=== PATIENT | female | born 1970 | race Caucasian/White ===

== ENCOUNTER 2017-03-08 11:21 | Outpatient (CLI) | payer MEDICAID ==
[2017-03-08 11:24] VITALS: BP 141/98
== END 2017-03-08 12:10 | disposition home or self-care (01) ==
LOC: ORTHO 11:21
PROVIDERS: ATTEND Nurse Practitioner Family
DX: S93.401A Sprain of unspecified ligament of right ankle, initial encounter (principal); W17.89XD Other fall from one level to another, subsequent encounter; Y92.017 Garden or yard in single-family (private) house as the place of occurrence of the external cause
CPT/HCPCS: 99213

== ENCOUNTER 2018-03-31 14:50 | Emergency (ER) | payer MEDICAID ==
[~2018-03-31] VITALS: Ht 170.2 cm; Wt 92.9 kg
[2018-03-31 14:57] VITALS: BP 125/95
[2018-03-31] MEDS ORDERED: TERB250T4 PO (15:15)
== END 2018-03-31 15:27 | disposition home or self-care (01) ==
LOC: ER 14:50
DX: B35.3 Tinea pedis (principal)
CPT/HCPCS: 99283

== ENCOUNTER 2020-04-20 11:59 | Emergency (ER) | payer MEDICAID ==
[~2020-04-20] VITALS: Ht 170.2 cm; Wt 90.9 kg
[2020-04-20] MEDS ORDERED: diphenhydrAMINE 50 mg/ml inj IV ONE (12:25)
[2020-04-20] MEDS ORDERED: ketorolac tromethamine 15mg/ml inj. IV ONE (12:25)
[2020-04-20] MEDS ORDERED: proCHLORperazine 10 MG/2 ml inj IV ONE (12:25)
[2020-04-20] MEDS ORDERED: normal saline 1000ML IV soln IVB ONE (12:25)
[2020-04-20 14:29] VITALS: BP 142/98
== END 2020-04-20 14:30 | disposition home or self-care (01) ==
LOC: ER 12:00
DX: G43.909 Migraine, unspecified, not intractable, without status migrainosus (principal); R11.2 Nausea with vomiting, unspecified; G89.29 Other chronic pain; Z90.710 Acquired absence of both cervix and uterus; Z98.890 Other specified postprocedural states; Z88.8 Allergy status to other drugs, medicaments and biological substances
CPT/HCPCS: 96361; 96374; 96375; 99284; J0780; J1200; J1885; J7030

== ENCOUNTER 2024-07-11 08:51 | Emergency (ER) | payer MEDICAID ==
[~2024-07-11] VITALS: Ht 170.2 cm; Wt 87.5 kg
[2024-07-11 09:00] VITALS: BP 126/75; PULSE 84; O2SAT 98
[2024-07-11] MEDS ORDERED: HYDR-3965 PO (10:22)
[2024-07-11 10:35] VITALS: RESP 16; TEMP 98.4
== END 2024-07-11 10:39 | disposition home or self-care (01) ==
LOC: ER 08:52
DX: S93.402A Sprain of unspecified ligament of left ankle, initial encounter (principal); Z90.710 Acquired absence of both cervix and uterus; Z98.890 Other specified postprocedural states; W19.XXXA Unspecified fall, initial encounter; Y93.89 Activity, other specified; Y92.89 Other specified places as the place of occurrence of the external cause; Y99.8 Other external cause status
CPT/HCPCS: 73610; 99283; L4360

== ENCOUNTER 2024-09-07 15:07 | Outpatient (CLI) | payer MEDICAID ==
--- NOTE | 2024-09-07 16:02 | RADIOLOGY REPORT ---
EXAM: DI SACRUM COCCYX CLINICAL INDICATION: LUMBAR PAIN TECHNIQUE: DI SACRUM COCCYX, 3v Comparison: None FINDINGS/IMPRESSION: There is no evidence of acute fracture or dislocation. The visualized joint space is well maintained. The alignment is anatomical. There is no radiopaque foreign body.
--- NOTE | 2024-09-07 16:02 | RADIOLOGY REPORT ---
INDICATION: LUMBAR PAIN COMPARISON: None TECHNIQUE: 4 views of the lumbar spine were obtained. FINDINGS: The lumbar vertebral alignment is normal. Moderate neural foraminal and spinal canal stenosis at L4-L5 through L5-S1 causing moderate to severe neural foraminal and spinal canal stenosis No acute fracture, vertebral compression deformity or aggressive osseous lesions. The paravertebral soft tissues are grossly unremarkable. IMPRESSION: No acute fracture or subluxation.
--- NOTE | 2024-09-07 17:35 | RADIOLOGY REPORT ---
RENAL ULTRASOUND REASON FOR EXAM: CHRONIC KIDNEY DISEASE, STAGE 3A COMPARISON: None TECHNIQUE: Real-time sector scans in multiple planes were obtained over the kidneys, ureters and yung dder. FINDINGS: Evaluation is suboptimal due to patient body habitus. The right kidney measures 10.2 x 4.9 x 5.6 cm. The left kidney measures 9.6 x 4.5 x 5.2 cm. There is an anechoic cyst at the anterior asp ect of the left kidney measuring approximately 3.8 x 3.1 cm. There are 2 adjacent anechoic cysts with posterior acoustic enhancement in the anterior interpolar region of the right kidney measuring appro ximately 1.5 x 1.6 cm and 1.0 x 1.6 cm. There is no hydronephrosis. The urinary bladder is within no rmal limits. There is no significant postvoid residual. IMPRESSION: Bilateral renal cysts which require no dedicated follow-up.
== END 2024-09-07 23:59 | disposition home or self-care (01) ==
LOC: RAD 15:07
PROVIDERS: ATTEND Physician Assistant
DX: N18.31 Chronic kidney disease, stage 3a (principal); N28.1 Cyst of kidney, acquired; M54.50 Low back pain, unspecified
CPT/HCPCS: 72110; 72220; 76770

== ENCOUNTER 2024-09-10 21:48 | Emergency (ER) | payer MEDICAID ==
[~2024-09-10] VITALS: Ht 170.2 cm; Wt 88.2 kg
[2024-09-10 21:51] VITALS: BP 117/81; PULSE 80; O2SAT 100
--- NOTE | 2024-09-11 00:46 | Physician Documentation ---
History of Present Illness ~ Chief Complaint: See Chief Complaint Stated Complaint: FALL Time Seen by MD: 00:45 Primary Medical Doctor: Dr. Davey [facility] Patient presents to the emergency room for evaluation of buttock pain, right leg pain in right arm pain. She fell recently onto her butt and has been having problems ever since. She had recent x-rays at our facility which were negative for fractures. Pain is described as a squeezing burning feeling in both her right calf and right arm. Occasional ibuprofen for her pain. No bladder or bowel incontinence Tetanus within 5 years: No (Patient Refused ) Medication Reconciliation Allergies: Uncoded Allergies: BLOOD PRESSURE MED: UNK (Allergy, Intermediate, 07/11/24) CAUSES TACHYCARDIA Past Medical History Past Medical History: Hemorrhoids, Chronic Pain Past Surgical History: hysterectomy, other Other Past Surgical History: ovarian cyst removal, hemmorhoidectomy Alcohol Use: None Drug Use: none Lives with: Family Lives In: Home Occupation: disabled Review of Systems ROS All review of systems negative except as per HPI Physical Exam Vital Signs: Temperature: 98.2, Source: Temporal, Heart Rate: 80, Respiratory Rate: 16, BP: 117/81, Pulse Oximetry: 100, Weight: 88.250 Oxygen Flow Rate: 0 Physical Exam General: Patient is awake, alert, oriented x4 in no acute distress Head: Normocephalic and atraumatic. Eyes: Conjunctival normal. EOMI. PERRL. ENT: Mucous membranes moist. Neck: Supple, trachea is midline. Chest: Clear to auscultation bilaterally without rales, rhonchi, or wheezes. There is no accessory muscle use or retractions. Cardiac: RRR without murmurs, gallops, or rubs. Extremities: Normal strength. Normal range of motion. No tenderness to palpation to arm or leg in unable to elicit pain. Tenderness to palpation over her upper sacrum Progress Results/Orders Results/Orders Vital Signs 09/10/24 21:51 Temp 98.2 Pulse 80 Resp 16 B/P (MAP) 117/81 Pulse Ox 100 O2 Flow Rate 0 Medical Decision Making Findings Patient presents to the emergency room for evaluation for pain as per HPI. Differentials include but are not limited to fractures, dislocations, radiculopathy, DVT. X-rays of already been performed which were reassuring. Given no tenderness to palpation he had not feel patient is suffering from DVT. Given description of symptoms I suspect radiculopathy and we will treat her as such. I do not suspect cauda equina Departure Disposition: 01 HOME / SELF CARE / HOMELESS Impression: Primary Impression: Radiculopathy Condition: Stable Discharge Instructions: Cervical Radiculopathy, Lumbosacral Radiculopathy Referrals: NO PRIMARY CARE PROVIDER (PCP) Prescriptions Prednisone* (Prednisone*) 20 Mg Tablet 1 TAB PO DAILY for 5 Days, #5 TAB Prov: ROSENDO MORALES MD 09/11/24 Hydrocodone Bit/Acetaminophen 5/325 MG ([place] 5/325 MG) 5 Mg/325 Mg Tablet 1 TAB PO Q4-6 hours PRN for pain, #15 TAB Prov: ROSENDO MORALES MD 09/11/24 Education Educated: Patient Educated regarding: diagnosis, treatment, need for follow up Signature Scribe Signature: No scribe Attestation: The note accurately reflects work and decisions made by me.Rosendo Morales MD 09/11/24 01:10 ROSENDO MORALES MD Sep 11, 2024 00:46
[2024-09-11] MEDS ORDERED: PRED20TA PO (01:10)
[2024-09-11] MEDS ORDERED: HYDR-3965 PO (01:10)
[2024-09-11 01:13] VITALS: TEMP 98.2
[2024-09-11] MEDS: predniSONE 20 mg tablet PO ONE (01:19)
[2024-09-11] MEDS: ondansetron 4mg rapidly disintigrating tab PO ONE (01:19)
[2024-09-11 01:21] VITALS: RESP 18
[2024-09-11] MEDS: HYDROcodone/acetaminophen 5mg/325mg tablet PO ONE (01:21)
== END 2024-09-11 01:23 | disposition home or self-care (01) ==
LOC: ER 21:49
DX: M54.18 Radiculopathy, sacral and sacrococcygeal region (principal); Z98.890 Other specified postprocedural states; Z90.710 Acquired absence of both cervix and uterus
CPT/HCPCS: 99284; J7512